=== PATIENT | female | born 1990 | race Caucasian/White ===

== ENCOUNTER 2016-10-01 23:32 | Emergency (ER) | payer OTHER ==
[~2016-10-01] VITALS: Ht 165.1 cm; Wt 81.6 kg
[~2016-10-01 23:32] MED LIST: AFRIN PUMPMIST15 ML NASB; DEPO-PROVER150 MG/ML IM; VALACYCLOVIR500 MG PO; VICODIN5-300 PO; ZOFRAN 4 MG TABL4 MG PO
[2016-10-01 23:58] VITALS: BP 138/85
[2016-10-02 00:42] LABS: ABSOLUTE BASOPHIL COUNT 0.1 /CUMM (0.0-0.2); ABSOLUTE EOSINOPHIL COUNT 0 /CUMM (0.0-0.7); ABSOLUTE GRANULOCYTE CT 7.3 /CUMM (1.4-6.5); ABSOLUTE LYMPH COUNT 2.4 /CUMM (1.2-3.4); ABSOLUTE MONOCYTE COUNT 0.6 /CUMM (0.10-0.60); BASOPHIL % 0.7 % (0.0-2.0); EOSINOPHIL % 0.1 % (0-5); MEAN CORPUSCULAR HGB 28.2 PG (27.0-31.0); MEAN CORPUSCULAR VOLUME 82.9 FL (81.0-99.0); MEAN PLATELET VOLUME 9.6 FL (7.4-10.4); PLATELET COUNT 282 /CUMM (130-400); RBC DISTRIBUTION WIDTH 13.8 % (11.5-14.5); RED BLOOD CELL CT 4.47 /CUMM (4.20-5.40); WHITE BLOOD CELL COUNT 10.3 /CUMM (4.8-10.8)
--- NOTE | 2016-10-02 01:11 | CT SCAN REPORT ---
EXAMINATION: CT ABDOMEN AND PELVIS WITH CONTRAST CLINICAL INFORMATION: Left lower quadrant pain. COMPARISON: 06/10/2015 TECHNIQUE: Multidetector volumetric imaging was performed of the abdomen and pelvis after the IV administration of 95 mL of Optiray 320 intravenous contrast. Sagittal and coronal reformatted images were obtained on the technologist's workstation. DLP: 380 mGy-cm FINDINGS: LUNG BASES: The visualized lung bases are unremarkable. LIVER, GALLBLADDER, AND BILIARY TREE: The liver is normal in size, shape, and attenuation. No focal hepatic lesion or biliary ductal dilatation is present. The gallbladder is contracted with no evidence of radiopaque gallstones, gallbladder wall thickening, or obvious pericholecystic inflammatory changes. PANCREAS: Unremarkable. SPLEEN: Unremarkable. ADRENAL GLANDS: Unremarkable. KIDNEYS AND URETERS: The kidneys are normal in size, shape, and attenuation. No hydronephrosis, hydroureter, or calculi seen. No perinephric stranding. BLADDER: Unremarkable. GASTROINTESTINAL TRACT: The stomach and small bowel are unremarkable. No dilated loops of bowel or evidence of obstruction. No colonic wall thickening or inflammatory change. No free air or free fluid. ABDOMINAL WALL: No significant hernia is appreciated. LYMPH NODES: Normal. VASCULAR: Unremarkable. PELVIC VISCERA: The uterus and adnexa are unremarkable. OSSEOUS STRUCTURES: Unremarkable. IMPRESSION: No acute findings of the abdomen or pelvis. No inflammatory changes. Specifically, no evidence of abdominal wall hernia or abscess.
--- NOTE | 2016-10-02 01:38 | ED GI/GU/ABDOMINAL COMPLAINT ---
History of Present Illness General Chief Complaint: Abdominal Pain/Flank Pain Stated Complaint: "PER PT ABD PAIN" Source: patient, old records, friend Exam Limitations: no limitations Vital Signs & Intake/Output Vital Signs & Intake/Output Vital Signs Date Time Temp Pulse Resp B/P B/P Pulse O2 O2 Flow FiO2 Mean Ox Delivery Rate 10/01 2358 96.8 101 20 138/85 100 Room Air ED Intake and Output 10/02 0000 10/01 1200 Intake Total Output Total Balance Patient 180 lb Weight Allergies Coded Allergies: MDX - Penicillin (PENICILLIN) (HAD A REACTION A KID, DOESNT KNOW THE REACTION 01/23/15) Reconcile Medications Ondansetron (Zofran 4 MG Tablet) 4 MG TAB 1 TAB PO Q8 PRN NAUUSEA Triage Note: 26YO FEMALE TO RM 3 STATING SHE HAS HAD LOW ABD PAIN AND BULDGE AT SITE X SEVERAL MONTHS ALSO STATES SHE HAD US ON WED AND RECEIVED CALL FROM HER COTTON WEIGHER OPERATOR TO GET TO ER IMMEDIATELY. Triage Nurses Notes Reviewed? yes LMP (ages 10-50): unknown ? n Is pt currently ? No Onset: months Duration: week(s):, constant, continues in ED Timing: recent history Quality/Severity: aching, moderate, sharpness Location: left lower quadrant Radiation: no radiation Activities at Onset: none Prior Abdominal Problems: similar symptoms Past Sexual History: Unobtainable at this time Modifying Factors: Worsens With: movement, palpation. Associated Symptoms: abdominal pain HPI: Several months prior to admission patient complains of painful lump at left side of incision site. Pain described as sharp worse with palpation and movement intercourse. Ultrasound was performed September 30 demonstrating possible incarcerated fat or abscess in this area. She denies fever chills nausea vomiting diarrhea chest pain cough shortness of breath headache rash bleeding Past History Travel History Traveled to [place] past 21 day No Medical History Any Pertinent Medical History? see below for history Neurological: NONE EENT: NONE Cardiovascular: HEART MURMUR "TACHYCARDIA" Respiratory: asthma Gastrointestinal: NONE Hepatic: NONE Renal: NONE Musculoskeletal: NONE Psychiatric: NONE Endocrine: NONE Blood Disorders: NONE Cancer(s): NONE COTTON WEIGHER OPERATOR/Reproductive: NONE Surgical History Surgical History: non-contributory Psychosocial History What is your primary language Turkmen Tobacco Use: Never used Family History Hx Contributory? No Review of Systems Review of Systems Constitutional: Reports: no symptoms. EENTM: Reports: no symptoms. Respiratory: Reports: no symptoms. Cardiovascular: Reports: no symptoms. GI: Reports: see HPI. Genitourinary: Reports: no symptoms. Musculoskeletal: Reports: no symptoms. Skin: Reports: no symptoms. Neurological/Psychological: Reports: no symptoms. Hematologic/Endocrine: Reports: no symptoms. Immunologic/Allergic: Reports: no symptoms. All Other Systems: Reviewed and Negative Physical Exam Physical Exam General Appearance: well developed/nourished, alert, awake, anxious, mild distress, obese Head: atraumatic, normal appearance Eyes: Bilateral: normal appearance, PERRL, EOMI, normal inspection. Ears, Nose, Throat, Mouth: hearing grossly normal, moist mucous membrane Neck: normal inspection, supple, full range of motion, normal alignment Respiratory: normal breath sounds, chest non-tender, no respiratory distress, quiet respiration, lungs clear Cardiovascular: regular rate/rhythm, normal peripheral pulses, norml femoral pulses equa Peripheral Pulses: 4+ carotid (R), 4+ carotid (L) Gastrointestinal: normal bowel sounds, soft, tenderness, pea-sized cystlike tender mass left end of scar Back: normal inspection, normal range of motion Extremities: normal range of motion, no ligament instability Neurologic/Psych: no motor/sensory deficits, awake, alert, oriented x 3, normal gait, normal mood/affect Skin: intact, normal color, warm/dry Core Measures ACS in differential dx? No Severe Sepsis Present: No Septic Shock Present: No Progress Differential Diagnosis: hernia, abscess, retained suture Plan of Care: Orders Procedure Date/time Status PROTHROMBIN TIME 10/02 002 Complete COMPREHENSIVE METABOLIC PANEL 10/02 0024 Complete CBC WITHOUT DIFFERENTIAL 10/02 0024 Complete URINE 10/02 0003 Complete URINALYSIS 10/02 0002 Complete Laboratory Tests 10/02/16 0025: Anion Gap 14, Estimated GFR > 60, BUN/Creatinine Ratio 16.0, Glucose 111 H, Calcium 9.2, Total Bilirubin 0.3, AST 23, ALT 40, Alkaline Phosphatase 53, Total Protein 7.1, Albumin 4.0, Globulin 3.1, Albumin/Globulin Ratio 1.3, PT 10.0, INR 0.95, CBC w Diff NO MAN DIFF REQ, RBC 4.47, MCV 82.9, MCH 28.2, RDW 13.8, MPV 9.6, Gran % 71.0, Lymphocytes % 22.8, Monocytes % 5.4, Eosinophils % 0.1, Basophils % 0.7, Absolute Granulocytes 7.3 H, Absolute Lymphocytes 2.4, Absolute Monocytes 0.6, Absolute Eosinophils 0, Absolute Basophils 0.1, PUBS MCHC 34.0 10/02/165: Urine Test NEGATIVE 10/02/165: Urine Color STRAW, Urine Clarity CLEAR, Urine pH 6.0, Ur Specific [place] <= 1.005, Urine Protein NEG, Urine Ketones NEG, Urine Nitrite NEG, Urine Bilirubin NEG, Urine Urobilinogen 0.2, Ur Leukocyte Esterase NEG, Ur Microscopic EXAM NOT REQUIRED, Urine Hemoglobin NEG, Urine Glucose NEG Diagnostic Imaging: Viewed by Me: CT Scan. Discussed w/RAD: CT Scan. Radiology Impression: No acute findings of the abdomen or pelvis. No inflammatory changes. Specifically, no evidence of abdominal wall hernia or abscess. Initial ED EKG: none Departure Departure Time of Disposition: 135 Disposition: HOME OR SELF CARE Condition: Stable Clinical Impression Primary Impression: Post-operative pain Referrals: UNKNOWN (PCP/Family) Departure Forms: Customer Survey General Discharge Information
== END 2016-10-02 01:47 ==
LOC: ERH 23:32
PROVIDERS: Emergency Medicine
DX: G89.18 Other acute postprocedural pain (principal)
CPT/HCPCS: 74177; 81003; 81025